=== PATIENT | female | born 1950 | race Caucasian/White ===

== ENCOUNTER → 2017-05-03 | Outpatient (CLI) | payer BC ==
[2017-04-12 11:00] VITALS: BP 173/61
[~2017-05-03] MED LIST: ACET325T9 PO; MULT-245 PO; TRAM50TA PO
--- NOTE | 2017-05-03 17:14 | RAD ---
CHEST PA LATERAL Clinical Indication: STATUS-POST THORACOTOMY. Comparison: Chest radiograph dated 04/11/2017 Findings: Asymmetric elevation of the right hemidiaphragm status post thoracotomy. Right basilar heterogenous air space opacities likely related to atelectasis. No new consolidation. Stable pulmonary vasculature. Decreasing small right pleural effusion. No pneumothorax. Interval decrease in heart size now within normal limits. Stable slightly tortuous thoracic aorta. No acute osseous abnormality. IMPRESSION: 1. No new consolidation. 2. Decreasing small right pleural effusion. 3. Interval decrease in heart size now within normal limits.
== END | disposition home or self-care (01) ==
LOC: RAD 11:12
PROVIDERS: ATTEND Thoracic Surgery (Cardiothoracic Vascular Surgery)
DX: J90 Pleural effusion, not elsewhere classified (principal); Z98.890 Other specified postprocedural states
CPT/HCPCS: 71020